=== PATIENT | female | born 1965 | race Caucasian/White ===

== ENCOUNTER → 2019-08-27 11:50 | Outpatient (CLI) | payer OTHER, SELFPAY ==
[2019-06-26 14:01] VITALS: BMI 24.6
[2019-08-27 16:16] LABS: Free T3 4.5 pg/mL (2.18-3.98); T4 Free Direct 0.79 ng/dL (0.76-1.46); Thyroid Stim Hormone (TSH) 0.26 uIU/mL (0.358-3.74)
== END ==
PROVIDERS: Referring Provider Internal Medicine Endocrinology, Diabetes & Metabolism; Visit Provider Internal Medicine Endocrinology, Diabetes & Metabolism
DX: E03.8 Other specified hypothyroidism (principal); E06.3 Autoimmune thyroiditis
CPT/HCPCS: 36415; 84439; 84443; 84481